=== PATIENT | female | born 1955 | race Caucasian/White ===

== ENCOUNTER 2019-01-05 08:37 | Day surgery (SDC) | payer BC ==
[~2019-01-05 08:37] MED LIST: Buffered Lidocaine 1% SYRIN* 1 ML/SYRINGE INTRADERM ONE; Lactated Ringers 1000 ML Bag* 1,000 ML IV SCH
[2019-01-05] MEDS ORDERED: fentaNYL* 50 MCG/ML 2 ML VIAL (100 MCG VIAL) ONE (08:40)
[2019-01-05] MEDS ORDERED: Rocuronium* 10 MG/ML VIAL ONE (08:40)
[2019-01-05] MEDS ORDERED: Propofol* 10 MG/ML 20 ML BTL ONE (08:40)
[2019-01-05] MEDS ORDERED: Midazolam* 1 MG/ML 2 ML VIAL (2 MG) ONE (08:40)
[2019-01-05] MEDS ORDERED: Lidocaine 2% PF * 5 ML VIAL ONE (08:40)
[2019-01-05] MEDS ORDERED: ceFAZolin 2 GM in NS PREMIX(*) 2 GM/100 ML BAG IVPB ONE (09:05)
[2019-01-05] MEDS ORDERED: Buffered Lidocaine 1% SYRIN* 1 ML/SYRINGE INTRADERM ONE (09:05)
[2019-01-05] MEDS ORDERED: ROPIVACAINE 5 MG/ML 30 ML BTL (0.5%) ONE (10:59)
[2019-01-05] MEDS ORDERED: Bupivacaine 0.25% W/EPI* 10 ML SDV ONE (11:10)
[2019-01-05] MEDS ORDERED: EPINEPHRINE 1 MG/ML 1 ML VIAL ONE (11:10)
[2019-01-05] MEDS ORDERED: Succinylcholine* 20 MG/ML 10 ML VIAL ONE ×2 (11:28→12:47)
[2019-01-05] MEDS ORDERED: EPHEDrine (Pressors)* 50 MG/ML VIAL ONE ×2 (11:44→12:18)
[2019-01-05] MEDS ORDERED: Dexamethasone IV* 4 MG/ML 1 ML (4 MG) ONE (11:44)
[2019-01-05] MEDS ORDERED: HYDROmorphone INJ1* 1 MG/ML SYRINGE IV PRN (12:19)
[2019-01-05] MEDS ORDERED: HYDROcodone/ACETAMIN 5-325 MG* 1 TAB PO PRN (12:19)
[2019-01-05] MEDS ORDERED: Naloxone* 0.4 MG/ML 1 ML VIAL IV PRN (12:19)
[2019-01-05] MEDS ORDERED: DiMENhydriNATE IV* 50 MG/ML VIAL IV PUSH PRN (12:19)
[2019-01-05] MEDS ORDERED: Ketorolac INJ* 30 MG/ML 1 ML VIAL ONE (12:29)
[2019-01-05] MEDS ORDERED: Ondansetron INJ* 2 MG/ML VIAL ONE (12:29)
[2019-01-05] MEDS ORDERED: Acetaminophen IV 1GM/100ML * 100 ML ONE (12:29)
[2019-01-05] MEDS ORDERED: Metoclopramide IV* 5 MG/ML 2 ML VIAL ONE (12:29)
[2019-01-05] MEDS ORDERED: Glycopyrrolate IV* 0.2 MG/ML 1 ML VIAL ONE (12:32)
[2019-01-05] MEDS ORDERED: Neostigmine Methylsulfate* 1 MG/ML 10 ML VIAL (1 mg/ml) ONE (12:32)
--- NOTE | 2019-01-05 14:11 | OP ---
DATE OF SURGERY: 01/05/19 - [facility] DATE OF : 57 ATTENDING SURGEON: Gabe Silverman MD MAINTENANCE SUPERVISOR 2ND SHIFT: Nory Glover RPA ANESTHESIA: Regional and general. PRE-OP DIAGNOSIS: Impingement syndrome, left shoulder. POST-OP DIAGNOSES: 1. Impingement syndrome, left shoulder. 2. Left biceps tendon tear. 3. Superior labral tear from anterior to posterior lesion, left shoulder. OPERATIVE PROCEDURE: 1. Left shoulder arthroscopy. 2. Biceps tenotomy. 3. Subacromial decompression. ESTIMATED BLOOD LOSS: Negligible. COMPLICATIONS: None. SUMMARY: Mrs. Gallo is a 63-year-old female who has been having troubles with both of her shoulders. She had been treated conservatively with physical therapy, antiinflammatories, and has had continued troubles with trying to reach up and over her head. This has slowly gotten worse, where she has lost motion as well as strength. I discussed with her the shoulder arthroscopy should work well to decrease her pain and improve her function. Risks of surgery such as infection, scar formation, stiffness, and continued pain were some of the risks discussed. She had been declared medically optimized and wished to proceed. DESCRIPTION OF PROCEDURE: The patient had a scalene block placed in the holding area, was brought back to the OR. General endotracheal anesthesia was then established. She was then sat up in a beach-chair position. Care was taken to make sure that her right arm was nicely abducted on an airplane board and that the cubital tunnel was nice and free. Left shoulder area was prepped and then draped. Portal sites were preinjected using 0.25% Marcaine with epinephrine. A standard posterior portal was made first using an 11 blade. Blunt trocar and the sheath was easily introduced into the shoulder and a cannula was introduced into the sheath. Shoulder was allowed to insufflate and pulling back, glenohumeral joint was nicely visualized. Damage on the biceps was immediately evident. Pictures were taken. Under direct vision, using an outside-in technique, anterior portal was established and probe was introduced. She only still had the small band of biceps connecting to the labrum, and it could be seen where greater than 80% of her biceps was already disconnected. Shaver was used to gently debride the biceps and complete the tear. Considering the subcutaneous tissues of her arm, the biceps deformity would not be visible so a tenodesis was not performed. Some of the damage along the superior labrum was gently debrided as at about 10:30 position, there was approximately 2 to 3 mm which was detached. This was gently debrided using the shaver. Probe was reintroduced and could be seen how from the 10:[address] around the labrum was solidly attached. Coming over the top side of the humeral head, she had quite thick synovial layer and this was again gently debrided using the shaver and no tears of the rotator cuff were seen. Picture was taken and shoulder joint was exited and subacromial joint was entered. Thickened inflamed bursa was present. Shaver was also entered into the subacromial space and used to take down the bursa and periosteum on the underside of the acromion. Bur was then used to form a decompression. Final pictures were taken and saved. All instrumentation was then removed and the portal sites were closed using 4-0 nylon sutures. Sterile dressing and a Cryo/ Cuff and a sling were all applied in the OR. The patient was then extubated in the OR and was stable on transfer to the recovery room. DISPOSITION/DISCHARGE SUMMARY: Mrs. Gallo is a 63-year-old female who just underwent a left shoulder arthroscopy and subacromial decompression. She tolerated the procedure well. There were no complications. She was rolling towards the recovery room. Once she wakes a bit more from her general anesthesia, cans tolerate p.o., her pain well controlled and voids, she will be discharged. Prescription for [place] will be e-scribed in. She has instructions to keep her dressing clean, dry, and intact for the next three days, but after that may take the dressing down, cover sutures with bandage, may shower, wash, or get it wet, but should not soak it. I would like to see her in the office in approximately 10 days to remove her sutures and make sure she is doing well. If there are any problems or if anything odd should occur there are instructions to give the office a call. [id number]/CPS #: [id number] MELANIE
[2019-01-05 14:22] VITALS: BP 113/55
== END 2019-01-05 14:29 | disposition home or self-care (01) ==
LOC: OR 08:37
PROVIDERS: ATTEND Orthopaedic Surgery
DX: M75.42 Impingement syndrome of left shoulder (principal); M24.212 Disorder of ligament, left shoulder; M17.32 Unilateral post-traumatic osteoarthritis, left knee; I10 Essential (primary) hypertension; E03.9 Hypothyroidism, unspecified; K21.9 Gastro-esophageal reflux disease without esophagitis; F32.9 Major depressive disorder, single episode, unspecified; E11.9 Type 2 diabetes mellitus without complications; Z79.84 Long term (current) use of oral hypoglycemic drugs; G89.18 Other acute postprocedural pain
CPT/HCPCS: J0330; J0690; J1100; J1885; J2250; J2405; J2704; J2710; J2765; J2795; J3010

== ENCOUNTER 2019-05-04 08:24 | Inpatient (IN) | payer BC ==
[~2019-05-04 08:24] MED LIST changes: +Acetaminophen TAB* 325 MG PO ONE; -Buffered Lidocaine 1% SYRIN* 1 ML/SYRINGE INTRADERM ONE; +Gabapentin CAP(*) 300 MG PO ONE; +Tranexamic Acid 1,000 MG in NS 0.9% 50 ML* (outpatient use) IV SCH
--- OUTSIDE RECORDS SUMMARY | 2019-05-04 08:27 | XMS REPORT | Continuity of Care Document ---
:1955 External Reference #:[id number] Author Name Kamala Dawson Address [address] [place] [address] Problems Active Problems Provider Date Essential hypertension Kamala Dawson Onset: 12/18/2016 Acute sinusitis Cosme Francois RPA Onset: 04/17/2017 Acute pharyngitis Cosme Francois RPA Onset: 04/17/2017 Social History Type Date Description Comments Sex Unknown ETOH Use Occasionally consumes alcohol Tobacco Use Start: Unknown Patient has never smoked Recreational Drug Use Denies Drug Use Smoking Status Reviewed: 04/28/19 Patient has never smoked Tattoo/Piercing Pierced ears Allergies, Adverse Reactions, Alerts Active Allergies Reaction Severity Comments Date Sulfa 12/18/2016 Aspirin Sensitivity 12/18/2016 Codene 12/18/2016 Epinephrine 04/17/2017 Medications Active Medications SIG Qnty Indications Ordering Date Provider Potassium Chloride ER 1 by mouth 90tabs Eunice, 01/05/2019 20Meq every day Kamala Tablets ER Lipitor 1 by mouth 90tabs Eunice, 10/10/2018 10mg Tablets every day Kamala Synthroid 1 by mouth 90tabs Eunice, 10/10/2018 137mcg Tablets every day Kamala Metformin HCL Take 1 Tablet 180tabs Eunice, 10/09/2018 500mg Tablets By Mouth Twice Kamala Daily Zolpidem Tartrate ER Take 1 Tablet 30tabs G47.00 Eunice, 07/02/2018 12.5mg By Mouth Kamala Tablets ER Nightly Max Daily Dose Of 1 Tablet Freestyle Chantell 14 use daily to 1units E11.65 Eunice, 07/02/2018 Day/Jordan/Flash monitor bs Kamala Monitoring System Device Freestyle 30 day supply 2units E11.65 Eunice, 07/02/2018 Chantell/Sensor/Flash of sensors Kamala [place] [facility] [place] H[place] Take 1 Capsule 90caps Corey, 05/07/[address] Part By Mouth Once Chica, INSOLE DEPARTMENT WORKER Daily Freestyle Lite Test test once a 100units E11.65 Eunice, 12/28/2016 Strips day, as needed Kamala Freestyle Lancets test once a 100units E11.65 Eunice, 12/28/2016 Misc day, as needed Kamala Compression Stockings Use Daily Eunice, 12/18/2016 20-30 mm HG Kamala Hydrochlorothiazide Take 1 Tablet 90tabs Corey, 50mg Tablets By Mouth Once Chica, INSOLE DEPARTMENT WORKER Daily Allopurinol Take 1 Tablet 90tabs Zabrina, 300mg Tablets By Mouth Once Treasure, STAFF FORESTER Daily Aspirin Childrens 1 by mouth Unknown 81mg Chewtabs every day Omeprazole Take 1 Capsule 90caps Eunice, 40mg Capsules DR By Mouth Once Kamala Daily Amlodipine Besylate Take 1 Tablet 90tabs Corey, 5mg Tablets By Mouth Once Chica, INSOLE DEPARTMENT WORKER Daily Lisinopril Take 1 Tablet 90tabs Corey, 40mg Tablets By Mouth Once Chica, INSOLE DEPARTMENT WORKER Daily Gabapentin 1 by mouth at Unknown 300mg Capsules bedtime History Medications Cephalexin one by mouth 30tabs N63.20 Treasure Gerber, 01/30/2019 - 500mg three times STAFF FORESTER 02/11/2019 Tablets daily Fluconazole take one at 3tabs N63.20 Treasure Gerber, 01/30/2019 - 150mg onset and STAFF FORESTER 04/28/2019 Tablets repeat in 3 days Immunizations CPT Code Status Date Vaccine Lot # 82069 Refused 04/22/2017 Influenza Vacc Seqirus/Afluria Alex, [facility] 54479-755- [id number], .5 ML Vital Signs Date Vital Result Comment 04/28/2019 11:23am Height 63 inches 5'3" Weight 246.00 lb BP Systolic 126 mmHg BP Diastolic 74 mmHg Heart Rate 64 /min Respiratory Rate 16 /min Pain Level Average Daily 0 BMI (Body Mass Index) 43.6 kg/m2 02/11/2019 2:51pm Height 63 inches 5'3" Weight 241.00 lb BP Systolic 130 mmHg BP Diastolic 74 mmHg Heart Rate 68 /min Respiratory Rate 16 /min Pain Level Average Daily 4 BMI (Body Mass Index) 42.7 kg/m2 Results Test Acquired Date Facility Test Result H/L Range Note Type and Screen 04/24/2019 N2N/CCD Import Patient Blood A Positive Type Basic Metabolic 04/24/2019 N2N/CCD Import Sodium 142 mmol/L 135-145 Panel Potassium 3.4 mmol/L Low 3.5-5.0 Chloride 100 mmol/L Low 101-111 Co2 Carbon Dioxide 32 mmol/L 22-32 Anion Gap 10 mmol/L 2-11 Glucose 95 mg/dL 70-100 Blood Urea Nitrogen 14 mg/dL 6-24 Creatinine 0.81 mg/dL 0.51-0.95 BUN/Creatinine Ratio 17.3 8-20 Calcium 9.5 mg/dL 8.6-10.3 Egfr Non- 71.6 >60 Egfr 86.7 >60 1 Inr 04/24/2019 N2N/CCD Import Inr 1.02 0.82-1.09 2 Activated Partial 04/24/2019 N2N/CCD Import Activated 31.2 seconds 26.0- 38.0 Thrombo Time Partial Thrombo Time CBC Auto Diff 04/24/2019 N2N/CCD Import White Blood 9.8 10^3/uL 3.5- 10.8 Count Red Blood Count 4.88 10^6/uL High 3.70-4.87 Hemoglobin 12.9 g/dL 12.0-16.0 Hematocrit 39 % 35-47 Mean Corpuscular Volume 80 fL 80-97 Mean Corpuscular Hemoglobin 26 pg Low 27-31 Mean Corpuscular HGB Conc 33 g/dL 31-36 Red Cell Distribution Width 17 % High 10-15 Platelet Count 219 10^3/uL 150-450 Mean Platelet Volume 8.2 fL 7.4-10.4 Abs Neutrophils 5.6 10^3/uL 1.5-7.7 Abs Lymphocytes 3.2 10^3/uL 1.0-4.8 Abs Monocytes 0.5 10^3/uL 0-0.8 Abs Eosinophils 0.3 10^3/uL 0-0.6 Abs Basophils 0.1 10^3/uL 0-0.2 Abs Nucleated RBC 0.0 10^3/uL Granulocyte % 57.6 % Lymphocyte % 33.1 % Monocyte % 5.4 % Eosinophil % 3.0 % Basophil % 0.9 % Nucleated Red Blood Cells % 0.0 Urinalysis w/Refl Micro/Cult 04/24/2019 N2N/CCD Import Urine Color Yellow Urine Appearance Clear Urine Specific [place] 1.018 1.010-1.030 Urine pH 8.0 5-9 Urine Urobilinogen Negative Negative Urine Ketones Negative Negative Urine Protein Negative Negative Urine Leukocytes Trace Abnormal Negative Urine Blood Negative Negative * * Abnormal Negative 3 Urine Nitrite Negative Negative Urine Bilirubin Negative Negative Urine Glucose Negative Negative Urine White Blood Cell Trace(0-5/hpf) Absent Urine Red Blood Cell Trace(0-2/hpf) Absent Urine Bacteria Absent Absent Urine Squamous Epithelial Cell Present Abnormal Absent CBC With Diff 01/30/2019 [facility] WBC 9.0 K/UL Normal 4.0-10.5 RBC 4.83 M/UL Normal 4.00-5.20 Hemoglobin 12.3 GM/DL Normal 12.2-15.5 Hematocrit 39.3 % Normal 37.0-47.0 MCV 81.4 FL Normal 77.0-100.0 MCH 25.5 pg Low 26.0-32.0 MCHC 31.3 g/dL Low 32.0-36.0 RDW 16.7 % High 11.5-14.0 Platelet Count 214 K/UL Normal 125-425 MPV 10.6 FL High 7.4-10.4 Absolute Neut 5.4 K/UL Normal 1.4-8.4 Absolute Lymph 2.7 K/UL Normal 1.0-4.0 Absolute [place] 0.6 K/UL Normal 0.0-1.5 Absolute Eos 0.3 K/UL Normal 0.0-0.7 Absolute Baso 0.1 K/UL Normal 0.0-0.1 Neut% 60 % Normal 35-78 Lymph% 31 % Normal 20-42 [place]% 6 % Normal 0-15 Eos% 2.9 % Normal 0.0-10.0 Baso% 1 % Normal 0-2 CBC With Diff 01/02/2019 [facility] WBC 11.3 K/UL High 4.0-10.5 RBC 4.88 M/UL Normal 4.00-5.20 Hemoglobin 12.5 GM/DL Normal 12.2-15.5 Hematocrit 39.4 % Normal 37.0-47.0 MCV 80.7 FL Normal 77.0-100.0 MCH 25.6 pg Low 26.0-32.0 MCHC 31.7 g/dL Low 32.0-36.0 RDW 16.1 % High 11.5-14.0 Platelet Count 212 K/UL Normal 125-425 MPV 10.7 FL High 7.4-10.4 Absolute Neut 7.5 K/UL Normal 1.4-8.4 Absolute Lymph 2.9 K/UL Normal 1.0-4.0 Absolute [place] 0.6 K/UL Normal 0.0-1.5 Absolute Eos 0.3 K/UL Normal 0.0-0.7 Absolute Baso 0.1 K/UL Normal 0.0-0.1 Neut% 66 % Normal 35-78 Lymph% 26 % Normal 20-42 [place]% 5 % Normal 0-15 Eos% 2.6 % Normal 0.0-10.0 Baso% 0 % Normal 0-2 Comprehensive Metabolic Panel 01/02/2019 [facility] Sodium 140 mmol/L Normal 137-145 Potassium 3.0 mmol/L Low 3.5-5.3 Chloride 99 mmol/L Normal 98-107 Carbon Dioxide 32 mmol/L Normal 21-32 Anion Gap 9 Normal 9-17 Glucose 123 mg/dL High 75-110 4 BUN 18 mg/dL Normal 7-20 Creatinine 0.8 mg/dL Normal 0.8-1.5 BUN/Creat Ratio 23 Calcium 9.4 mg/dL Normal 8.4-10.2 Total Protein 7.4 g/dL Normal 6.1-8.1 Albumin 4.1 g/dL Normal 3.5-5.1 Alb/Glob Ratio 1.3 Normal 1.1-1.8 Bilirubin, Total 0.7 mg/dL Normal 0.1-1.5 Alk Phosphatase 89 IU/L Normal 39-122 Ast (Sgot) 41 IU/L High 5-40 Alt (SGPT) 31 IU/L Normal 7-51 Hemoglobin A1c 01/02/2019 [facility] Hemoglobin A1c 5.7 % High 4.0-5.6 5 Lipid Panel ([facility]) 01/02/2019 [facility] Cholesterol 129 mg/dL Normal 100- 200 6 Triglycerides 161 mg/dL High 40-150 HDL 39 mg/dL Normal 30-80 LDL 57.80 mg/dL Normal 7 Risk 3.31 8 Urine Microalbumin 01/02/2019 [facility] Microalbumin 12.80 Normal 0.00- 30.00 Random Random g/mL Urine Creatinine 210.0 mg/dL Albumin / Creat Ratio 6.10 MG/G Normal <17.0 TSH 01/02/2019 [facility] TSH (Ultrasens.) 4.140 Normal 0.380-4.710 MIU/L T4 Total 01/02/2019 [facility] Total T4 12.0 High 4.7-11.5 g/dL Non-HDL 01/02/2019 [facility] Non-HDL 90 mg/dL Normal 60-100 9 Cholesterol Cholesterol Estimated 01/02/2019 [facility] Egfr - Non- >60 Normal 10 Glomerular sq.meters Filtration Rate Egfr - >60 sq.meters Normal 11 Estimated Avg 01/02/2019 [facility] Estimated Avg 117 mg/dL High 68-115 12 Glucose Glucose Free T4 01/02/2019 [facility] Free T4 1.2 ng/dL Normal 0.7-2.0 TSH 11/20/2018 [facility] TSH (Ultrasens.) 1.340 MIU/L Normal 0.380-4.710 T4 Total 11/20/2018 [facility] Total T4 12.2 g/dL High 4.7-11.5 1 Because ethnic data is not always readily available, this report includes an eGFR for both -Americans and non- Americans. The National Kidney Disease Education Program (NKDEP) does not endorse the use of the MDRD equation for patients that are not between the ages of 18 and 70, are , have extremes of body size, muscle mass, or nutritional status, or are non- or non-. According to the National Kidney Foundation, irrespective of diagnosis, the stage of the disease is based on the level of kidney function: Stage Description GFR(mL/min/1.73 m(2)) 1 Kidney damage with normal or decreased GFR 90 2 Kidney damage with mild decrease in GFR 60-89 3 Moderate decrease in GFR 30-59 4 Severe decrease in GFR 15-29 5 Kidney failure <15 (or dialysis) 2 Standard intensity warfarin therapeutic range: 2.0-3.0 High intensity warfarin therapeutic range: 2.5-3.5 3 *Ascorbic acid is present which may interfere with detection of blood. 4 Reference Ranges: Normal Fasting Glucose ........65-99 MG/DL Pre-Diabetes ......100-125 MG/DL Provisional Diagnosis of Diabetes .........>125 MG/DL 5 Reference Range: Increased Risk for Diabetes... 5.7 - 6.4% Diagnostic for Diabetes... 6.5% or above 6 Cholesterol Ranges: Desirable <200 MG/DL Borderline High 200-239 MG/DL High >239 MG/DL ............................... 7 <100 8 CHD RISK FACTOR VS CHOLESTEROL/HDL RATIO RELATIVE TOTAL CHOL/HDL RATIO RISK FOR CHD MALE FEMALE [address] CHD 3.4 3.3 AVERAGE 4.9 4.4 2 X AVERAGE 9.6 7.0 3 X AVERAGE 24.0 11.0 9 LDL Non-HDLC High Risk <100 <130 (Optional for Very High Risk) (<70) (<100) Moderate Risk <130 <160 (Optional for Moderately High Risk) (<100) (<130) Low Risk <160 <190 For assesment of risk for ischemic heart disease, please visit www.nhlbi.nih.gov 10 >60 mL/min/1.73 11 >60 mL/min/1.73 Potential Chronic Kidney Disease: <60ml/min/1.73sq meters Kidney Failure: <15ml/min/1.73sq meters 12 The reference range provided is the estimated average glucose equivalent to the Hemoglobin A1C reference range Procedures Date Code Description Status 01/02/2019 40278 Electrocardiogram, Complete Completed 06/10/2016 904554545 Bone Mineral Density Test Completed 06/10/2016 82271178 Mammogram Completed Medical Devices Description No Information Available Encounters Type Date Location Provider Dx Diagnosis Office Visit 02/11/2019 Main Office Joe-Scott, M75.42 Impingement syndrome 3:00p Kamala of left shoulder N63.20 Unspecified lump in the left breast, unspecified quadrant E11.65 Type 2 diabetes mellitus with hyperglycemia I10 Essential (primary) hypertension E03.9 Hypothyroidism, unspecified R74.0 Nonspec elev of levels of transamns & lactic acid dehydrgnse H69.83 Other specified disorders of Eustachian tube, bilateral Z68.41 Body mass index (BMI) 40.0-44.9, adult Office Visit 01/30/2019 11:15a Main Office Treasure Gerber, N63.20 Unspecified lump STAFF FORESTER in the left breast, unspecified quadrant Z68.41 Body mass index (BMI) 40.0-44.9, adult Office Visit 01/02/2019 Main Office Kamala Dawson M75.42 Impingement 8:00a syndrome of left shoulder E11.65 Type 2 diabetes mellitus with hyperglycemia I10 Essential (primary) hypertension E03.9 Hypothyroidism, unspecified Z01.818 Encounter for other preprocedural examination K59.00 Constipation, unspecified Z12.31 Encntr screen mammogram for malignant neoplasm of breast Z68.41 Body mass index (BMI) 40.0-44.9, adult Assessments Date Code Description Provider 04/28/2019 Z01.818 Encounter for other preprocedural examination Kamala Rosales 04/28/2019 M25.562 Pain in left knee Kamala Dawson 04/28/2019 E11.65 Type 2 diabetes mellitus with hyperglycemia Kamala Dawson 04/28/2019 Z68.41 Body mass index (BMI) 40.0-44.9, adult Kamala Dawson 02/11/2019 M75.42 Impingement syndrome of left shoulder Kamala Dawson 02/11/2019 N63.20 Unspecified lump in the left breast, Kamala Dawson unspecified quadrant 02/11/2019 E11.65 Type 2 diabetes mellitus with hyperglycemia Kamala Dawson 02/11/2019 I10 Essential (primary) hypertension Kamala Dawson 02/11/2019 E03.9 Hypothyroidism, unspecified Kamala Dawson 02/11/2019 R74.0 Nonspecific elevation of levels of Kamala Dawson transaminase and lactic acid dehydrogenase [LDH] 02/11/2019 H69.83 Other specified disorders of Eustachian tube, Kamala Rosales bilateral 02/11/2019 Z68.41 Body mass index (BMI) 40.0-44.9, adult Kamala Dawson 01/30/2019 N63.20 Unspecified lump in the left breast, Treasure Gerber, GISELA unspecified quadrant 01/30/2019 Z68.41 Body mass index (BMI) 40.0-44.9, adult Treasure Gerber NP 01/02/2019 M75.42 Impingement syndrome of left shoulder Kamala Dawson 01/02/2019 E11.65 Type 2 diabetes mellitus with hyperglycemia Kamala Dawson 01/02/2019 I10 Essential (primary) hypertension Kamala Dawson 01/02/2019 E03.9 Hypothyroidism, unspecified Kamala Dawson 01/02/2019 Z01.818 Encounter for other preprocedural examination Kamala Rosales 01/02/2019 K59.00 Constipation, unspecified Kamala Dawson 01/02/2019 Z12.31 Encounter for screening mammogram for Kamala Dawson malignant neoplasm of breast 01/02/2019 Z68.41 Body mass index (BMI) 40.0-44.9, adult Kamala Dawson 11/20/2018 E03.9 Hypothyroidism, unspecified Nurse Visit Plan of Treatment 04/28/2019 - Domingo DawsonenZ01.818 Encounter for other preprocedural examinationComments:PT CLEARED FOR PROPOSED PROCEDURE. TO HOLD ASPIRIN, FISH OIL FOR 5 DAYS PRIOR TO OR. NO CONTRAINDICATION TO THE SURGERY PT IS MEDICALLY CLEARED FOR SURGERY. EKG IN DECEMBER OK TO USE FOR SURGERY CLEARANCE PER DR. CORRALES OFFICE IN [place]. WILL HOLD HCTZ THE AM OF SURGERY PT HAD A RECENT FALL AND INJURED HER RIGHT KNEE. NO CONTRAINDICATION TO [id number] Pain in left kneeComments:PER FNXIEI43.65 Type 2 diabetes mellitus with hyperglycemiaComments:PT WILL HOLD DM MED THE MORNING OF THE SURGERY. PT WILL NEED FSBS MONITORING IN PERIOPERATIVE PIWVXET56.41 Body mass index (BMI) 40.0- 44.9, adult Functional Status Description No Information Available Mental Status Mental Condition Comment Date Status None Active Referrals Refer to Reason for Referral Status Appt Date Nathaniel Jackson MD LUMP IN BELLY THAT SHE WANTS Patient Notified REMOVED [address] [facility] [address] [place] [address] [phone] Dagoberto Posey LUMP ON NOSE WANTS IT REMOVED Patient Notified 2018 [address] [place] [address] [phone] [facility] abnormal ultrasound Patient Notified 02/05/2019 Main [facility] [address] [place] [address] [phone]
--- OUTSIDE RECORDS SUMMARY | 2019-05-04 08:27 | XMS REPORT | Continuity of Care Document ---
:1955 External Reference #:[id number] Author Name Gabe Silverman M.D. (transmitted by agent of provider China Palacios) Address [address] [place] [address] Care Team Providers Name Role Phone Heath-Kamala Chavez DO - Internal Care Team Information Tie Presser Medicine Problems Active Problems Provider Date Chondromalacia Gabe Silverman M.D. Onset: 02/09/2016 Traumatic arthropathy-knee Gabe Silverman M.D. Onset: 02/09/2016 Localized, secondary osteoarthritis Gabe Silverman M.D. Onset: 02/22/2016 Localized, primary osteoarthritis Gabe Silverman M.D. Onset: 10/30/2017 Social History Type Date Description Comments Sex Unknown Tobacco Use Start: Unknown Patient has never smoked Smoking Status Reviewed: 03/25/19 Patient has never smoked Allergies, Adverse Reactions, Alerts Active Allergies Reaction Severity Comments Date Aspirin 02/09/2016 Codeine 02/09/2016 Sulfa Antibiotics 02/09/2016 Novocain 02/09/2016 Medications Active Medications SIG Qnty Indications Ordering Date Provider Cyclobenzaprine HCL take 1 tablet 90tabs M62.412 Gabe Silverman, 2018 10mg Tablets up to three M.D. times a day as needed Gabapentin 1 by mouth 30caps M75.42 Gabe Silverman, 01/28/2019 300mg Capsules every night at M.D. bedtime Clavicle Strap/Figure-8 1units M75.42 Gabe Silverman, 11/19/2018 Medium M.D. Fig-8 MD Carrillo Diclofenac Sodium apply 4 gr to 300gm M17.32 Gabe Silverman, 10/22/2018 1% Gel right knee M.D. twice a day as needed Clobetasol 17 Propionate Unknown Aerosol Amlodipine Besylate 1 by mouth Unknown 5mg Tablets every day Duloxetine HCL 1 by mouth Unknown 30mg Caps DR Part every day Hydrochlorothiazide 1 by mouth Unknown 50mg Tablets every day Lisinopril 1 by mouth Unknown 40mg Tablets every day Metformin HCL ER (Mod) 2 by mouth Unknown 500mg twice a day Tablets ER 24HR Omeprazole 1 by mouth Unknown 40mg Capsules DR every day Synthroid 1 by mouth Unknown 137mcg Tablets every day Atorvastatin Calcium Unknown 10mg Tablets Medications Administered in Office Medication SIG Qnty Indications Ordering Provider Date Synvisc Or Synvisc-One Injection Gabe Silverman M.D. 09/17/2018 1 MG Injection Synvisc Or Synvisc-One Injection Gabe Silverman M.D. 09/17/2018 1 MG Injection Synvisc Or Synvisc-One Injection Gabe Silverman M.D. 11/13/2017 1 MG Injection Synvisc Or Synvisc-One Injection Gabe Silverman M.D. 10/30/2017 1 MG Injection Synvisc Or Synvisc-One Injection Gabe Silverman M.D. 04/24/2017 1 MG Injection Synvisc Or Synvisc-One Injection Gabe Silverman M.D. 02/22/2016 1 MG Injection Depomedrol 80MG Gabe Silverman M.D. 04/05/2010 Injection Immunizations Description No Information Available Vital Signs Date Vital Result Comment 03/25/2019 1:52pm Height 63 inches 5'3" Weight 241.00 lb Heart Rate 56 /min BP Systolic 132 mmHg BP Diastolic 84 mmHg Respiratory Rate 18 /min Body Temperature 97.5 F Pain Level 0 BMI (Body Mass Index) 42.7 kg/m2 02/25/2019 3:10pm Height 63 inches 5'3" Weight 244.00 lb Heart Rate 66 /min BP Systolic 120 mmHg BP Diastolic 78 mmHg Body Temperature 97.7 F Pain Level 0 BMI (Body Mass Index) 43.2 kg/m2 Results Test Date Facility Test Result H/L Range Note Laboratory test 01/05/2019 [facility] Point of Care 149 mg/dL High 70-100 [address] [place] [address] [phone] Laboratory test 01/05/2019 [facility] Point of Care 110 mg/dL High 70-100 [address] [place] [address] [phone] Motor Adjuster: [id number] 2 Motor Adjuster: [id number] Procedures Date Code Description Status 01/05/2019 40854 Arthroscopy,Shoulder Decompression Of Subacromial Space Completed W/Acromio 01/05/2019 29100 Arthroscopy,Shoulder Decompression Of Subacromial Space Completed W/Acromio 01/05/2019 48609 Arthroscopy Shoulder Debridement Limited Completed 01/05/2019 66894 Arthroscopy Shoulder Debridement Limited Completed Medical Devices Description No Information Available Encounters Type Date Location Provider Dx Diagnosis Office Visit 01/28/2019 [facility] Gabe Silverman, D17.22 Benign lipomatous 2:15p at [facility] neoplasm of skin, subcu of left arm M75.41 Impingement syndrome of right shoulder M17.32 Unilateral post-traumatic osteoarthritis, left knee Office Visit 11/19/2018 [facility] Gabe M17.32 Unilateral 3:00p Orthopedics at [facility] post-traumatic [place] osteoarthritis, left knee M75.42 Impingement syndrome of left shoulder M75.41 Impingement syndrome of right shoulder Office Visit 10/22/2018 [facility] Gabe M17.32 Unilateral 3:30p Orthopedics at [facility] post-traumatic [place] osteoarthritis, left knee M75.42 Impingement syndrome of left shoulder Assessments Date Code Description Provider 03/25/2019 M17.11 Unilateral primary osteoarthritis, right Gabe Silverman M.D. knee 02/25/2019 M17.32 Unilateral post-traumatic osteoarthritis, Gabe Silverman M.D. left knee 02/25/2019 M62.412 Contracture of muscle, left shoulder Gabe Silverman M.D. 01/28/2019 D17.22 Benign lipomatous neoplasm of skin and Gabe Silverman M.D. subcutaneous tissue of left arm 01/28/2019 M75.41 Impingement syndrome of right shoulder Gabe Silverman M.D. 01/28/2019 M17.32 Unilateral post-traumatic osteoarthritis, Gabe Silverman M.D. left knee 01/14/2019 Z47.89 Encounter for other orthopedic aftercare Gabe Silverman M.D. 01/14/2019 M75.41 Impingement syndrome of right shoulder Gabe Silverman M.D. 01/05/2019 M75.42 Impingement syndrome of left shoulder [facility] [place] 01/05/2019 S43.432A Superior glenoid labrum lesion of left [facility]RI [place] shoulder, initial encounter 01/05/2019 M75.42 Impingement syndrome of left shoulder Gabe Silverman M.D. 01/05/2019 S43.432A Superior glenoid labrum lesion of left Gabe Silverman M.D. shoulder, initial encounter 12/22/2018 M75.42 Impingement syndrome of left shoulder Gabe Silverman M.D. 12/19/2018 M75.42 Impingement syndrome of left shoulder Gabe Silverman M.D. 11/19/2018 M17.32 Unilateral post-traumatic osteoarthritis, Gabe Silverman M.D. left knee 11/19/2018 M75.42 Impingement syndrome of left shoulder Gabe Silverman M.D. 11/19/2018 M75.41 Impingement syndrome of right shoulder Gabe Silverman M.D. 10/22/2018 M17.32 Unilateral post-traumatic osteoarthritis, Gabe Silverman M.D. left knee 10/22/2018 M75.42 Impingement syndrome of left shoulder Gabe Silverman M.D. Plan of Treatment Future Appointment(s):05/04/2019 9:00 am - Gabe Silverman M.D. at [facility]03/25/2019 - Gabe Silverman M.D.M17.11 Unilateral primary osteoarthritis, right kneeFollow up:Call if PT script needed for the shoulder Functional Status Description No Information Available Mental Status Description No Information Available Referrals Description No Information Available
[2019-05-04] MEDS ORDERED: Gabapentin CAP(*) 300 MG ONE (09:27)
[2019-05-04] MEDS ORDERED: Acetaminophen TAB* 325 MG ONE (09:27)
[2019-05-04] MEDS ORDERED: Buffered Lidocaine 1% SYRIN* 1 ML/SYRINGE INTRADERM ONE (09:27)
[2019-05-04] MEDS ORDERED: ceFAZolin 2 GM in NS PREMIX(*) 2 GM/100 ML BAG IVPB ONE (09:27)
[2019-05-04] MEDS: Buffered Lidocaine 1% SYRIN* 1 ML/SYRINGE INTRADERM ONE ×2 (09:36→15:21)
[2019-05-04] MEDS ORDERED: Midazolam* 1 MG/ML 2 ML VIAL (2 MG) ONE ×2 (10:21→11:35)
[2019-05-04] MEDS ORDERED: fentaNYL* 50 MCG/ML 2 ML VIAL (100 MCG VIAL) ONE ×2 (10:21→11:24)
[2019-05-04] MEDS ORDERED: ROPIVACAINE 5 MG/ML 30 ML BTL (0.5%) ONE (11:03)
[2019-05-04] MEDS ORDERED: Propofol* 500 MG/50 ML BTL ONE ×2 (11:50→12:42)
[2019-05-04] MEDS ORDERED: Bupivacaine 0.25% EPI 200,000* 30 ML SDV ONE (12:08)
[2019-05-04] MEDS ORDERED: Bupivacaine 0.5% W/EPI SDV* 10 ML VIAL INJ ONE (12:10)
[2019-05-04] MEDS ORDERED: EPHEDrine (Pressors)* 50 MG/ML VIAL ONE (12:29)
[2019-05-04] MEDS ORDERED: Phenylephrine 40 MCG/ML SYRINGE ONE (12:30)
[2019-05-04] MEDS ORDERED: Propofol* 10 MG/ML 20 ML BTL ONE (13:58)
[2019-05-04] MEDS ORDERED: diPHENhydraMINE PO* 25 MG PO PRN (14:18)
[2019-05-04] MEDS ORDERED: Ondansetron ODT TAB* 4 MG PO PRN (14:18)
[2019-05-04] MEDS ORDERED: diPHENhydraMINE IV* 50 MG/ML 1 ml VIAL (BENADRYL) IV PRN (14:18)
[2019-05-04] MEDS ORDERED: Magnesium Hydroxide LIQ* 30 ML UDC PO PRN (14:18)
[2019-05-04] MEDS ORDERED: Cyclobenzaprine TAB* 10 MG PO PRN (14:18)
[2019-05-04] MEDS ORDERED: oxyCODONE TAB* 5 MG TAB PO PRN (14:18)
[2019-05-04] MEDS ORDERED: Ondansetron INJ* 2 MG/ML VIAL IV PRN (14:18)
[2019-05-04] MEDS ORDERED: Dextrose 50% VIAL 50 ml IV PUSH PRN (14:24)
[2019-05-04] MEDS ORDERED: HYDROcodone/ACETAMIN 5-325 MG* 1 TAB ONE ×2 (14:53→14:58)
[2019-05-04] MEDS ORDERED: HYDROcodone/ACETAMIN 5-325 MG* 1 TAB PO ONE (14:54)
[2019-05-04] MEDS: Lactated Ringers 1000 ML Bag* 1,000 ML IV SCH (15:45)
[2019-05-04] MEDS ORDERED: HYDROcodone/ACETAMIN 5-325 MG* 1 TAB PO PRN (16:16)
[2019-05-04] MEDS ORDERED: Insulin LISPRO* 1 UNITS UNIT SUBCUT SCH (16:30)
[2019-05-04] MEDS ORDERED: Ketorolac INJ* 30 MG/ML 1 ML VIAL IV PUSH PRN (16:38)
--- NOTE | 2019-05-04 16:40 | PN ---
Progress Note - Progress Note Date of Service: 05/04/19 Note: Pt seen at bedside. She has 8/10 pain. Asks for norco instead of oxycodone. Denies CP, SOB,dizziness, nausea. DF/PF intact, DP2+, sensation intact to light touch distally.
[2019-05-04] MEDS ORDERED: Warfarin TAB(*) 10 MG PO ONE (17:00)
[2019-05-04] MEDS: Lactobacillus Acidophilus* 1 TAB PO SCH (17:31)
[2019-05-04] MEDS: Morphine INJ* 2 MG/ML 1 ML SYRINGE (TWO MG - NEW SYRINGE VERSION) IV PRN (17:31)
[2019-05-04] MEDS: traMADol TAB* 50 MG PO SCH (17:32)
[2019-05-04] MEDS: Potassium Chlor TAB* 20 MEQ TAB.ER PO SCH (17:33)
--- NOTE | 2019-05-04 17:46 | CONS ---
CC: Dr. Kamala Gamino, [facility], [place]; Dr. Silverman * CONSULTATION REPORT: DATE OF CONSULT: 05/04/19 PRIMARY CARE PROVIDER: Dr. Kamala Dawson, [facility] in [place]. ATTENDING PHYSICIAN: Dr. Donna López (dictated by CARRI Grant). REQUESTING PHYSICIAN: Dr. Silverman. REASON FOR CONSULT: Co-medical management. HISTORY OF PRESENT ILLNESS: Ms. Gallo is a 63-year-old female with past medical history of diabetes mellitus, hypertension, hyperlipidemia, gout, obstructive sleep apnea, who presented to [facility] today for an elective left total knee arthroplasty performed by Dr. Silverman. She is seen postoperatively in her bed on surgical short-stay. She is complaining of left knee pain rated at 8/ 10. She also has left shoulder pain and decreased range of motion. She is status post left shoulder surgery in December 2018. She reports no pain elsewhere. She does complain of chronic left pinky and left lateral fourth digit numbness since her left cubital tunnel surgery. She has no other complaints today. PAST MEDICAL HISTORY: 1. Diabetes mellitus. 2. Hypertension. 3. Hyperlipidemia. 4. Hypothyroidism. 5. GERD. 6. Obstructive sleep apnea. 7. Gout. 8. Depression. 9. Insomnia. PAST SURGICAL HISTORY: Hysterectomy, left cubital tunnel, left knee scope, left shoulder, cholecystectomy, appendectomy, bladder/vaginal mesh, tummy tuck, abdominal adhesions, faciomaxillary surgery. HOME MEDICATIONS: 1. Allopurinol 300 mg p.o. daily. 2. Amlodipine besylate 5 mg p.o. daily. 3. Aspirin 81 mg p.o. daily. 4. Atorvastatin 10 mg p.o. daily. 5. Cyclobenzaprine 10 mg p.o. daily. 6. Diclofenac 1% gel topically. 7. Duloxetine DR 60 mg p.o. daily. 8. Fluticasone nasal spray 2 sprays to both nares at bedtime. 9. Gabapentin 300 mg p.o. at bedtime. 10. Hydrochlorothiazide 50 mg p.o. daily. 11. Levothyroxine 137 mcg p.o. daily. 12. Lisinopril 40 mg p.o. daily. 13. Melatonin 2.5 mg p.o. daily. 14. Metformin 500 mg p.o. b.i.d. 15. Omeprazole 40 mg p.o. at bedtime. 16. Potassium chloride 20 mEq p.o. at bedtime. 17. Metamucil 1 wafer daily. 18. Probiotic 250 mg p.o. at bedtime. 19. Total Cleanse capsule 1 cap p.o. daily. 20. Zolpidem tartrate 12.5 mg p.o. at bedtime p.r.n. insomnia. DRUG ALLERGIES: CODEINE, abdominal pain; EGG, abdominal pain, diarrhea; ASPIRIN , thin membrane bleeding; PROCAINE, panic attacks; SULFA, vomiting. FAMILY HISTORY: Father at the age of 80, suspected to be from aneurysm. He had a history of diabetes mellitus, prostate cancer, coronary artery disease with quadruple bypass. Mother at the age of 83 from complications from Alzheimer's. She also had coronary artery disease with stenting. She has 2 brothers with prostate cancer and a brother with PAD and aneurysm. No family history of CVA. SOCIAL HISTORY: The patient denies current or former use of tobacco. She drinks 1 to 2 alcoholic beverages per week. She does not use illicit drugs. She is a homemaker. She is and lives with her and her autistic son. In the event that she is unable to make her own medical decisions, she has appointed her and healthcare proxy Feliz Gallo to be her surrogate decision maker. REVIEW OF SYSTEMS: A 14-point review of systems has been performed and all the pertinent positives and negatives are in the HPI. All other systems are negative. PHYSICAL EXAM: General: Ms. Gallo is a well-developed, well-nourished, obese , middle-aged white female, who is sitting up in bed. She appears to be in no acute distress. She is pleasant, cooperative, appropriate. Vital Signs: Temperature 97.6 oral, heart rate 56, respiratory rate 16, oxygen saturation 95 % on room air, blood pressure 120/54. HEENT: PERRL. EOMI. Nonicteric sclerae. Hearing is grossly intact. Oral mucous membranes are moist. There are no lesions. The pharynx is clear. The tongue is at midline. Palate elevates symmetrically. Cardiovascular: Regular rate and rhythm with S1, S2 present without murmurs, rubs, clicks, or gallops. There is no JVD or peripheral edema. Radial and pedal pulses are palpable. Pulmonary: Symmetrical chest expansion without use of accessory muscles. Clear to auscultation bilaterally without rhonchi, wheezes, or rales. No digital clubbing or cyanosis. Abdomen: Obese. Bowel sounds in all quadrants. Soft, nontender to palpation. Musculoskeletal: Left shoulder with decreased range of motion. Left knee with clean, dry, intact dressing in place; Cryo unit in place. Sensation intact distally. The patient is able to move distal digits in the bilateral upper and lower extremities. Neuro: The patient is awake. She is alert and oriented x3. Cranial nerves II through XII are grossly intact. ASSESSMENT AND PLAN: Ms. Gallo is a 63-year-old female with past medical history of hypertension, hyperlipidemia, obstructive sleep apnea, who presented to [facility] today for an elective left total knee arthroplasty. She will be admitted inpatient for: 1. Left total knee arthroplasty. Management per Dr. Silverman and ortho team. Activity per Ortho. PT has been ordered. Heparin subcu for DVT prophylaxis. 2. Diabetes mellitus. Metformin has been placed on hold. The patient will be started on lispro sliding scale with fingersticks a.c. and h.s. 3. Hypertension. Lisinopril has been placed on hold. The patient will continue amlodipine and HCTZ. 4. Hyperlipidemia. Continue atorvastatin. 5. Hypothyroidism. Continue levothyroxine. 6. Gout. Continue allopurinol. We will hold Total Cleanse home medication for the time being. 7. Obstructive sleep apnea. The patient has her own CPAP, which she will use while she is in the hospital. 8. Depression. Continue duloxetine. 9. Gastroesophageal reflux disease. Continue omeprazole. 10. Insomnia. Continue melatonin daily, zolpidem p.r.n. 11. DVT prophylaxis: Per Ortho, heparin subcu t.i.d. 12. Code status: Full code. TIME SPENT: Approximately 40 minutes was spent on this consultation, greater than half that time was spent [id number] with the patient obtaining history, performing physical, and reviewing the plan of care. The case has been reviewed with my attending Dr. López, who is in agreement with the plan of care. CARRI HORNER [id number]/[facility] #: [id number] E.J. NOBLE HOSPITALMarielle
[2019-05-04] MEDS: Insulin LISPRO* 1 UNITS UNIT SUBCUT SCH ×2 (18:10→21:32)
[2019-05-04] MEDS: Fluticasone NASAL SPRAY 50MCG* 16 gm SPRAY BTL BOTH NARES SCH (18:12)
[2019-05-04] MEDS: HYDROcodone/ACETAMIN 5-325 MG* 1 TAB PO PRN ×2 (19:09→23:11)
[2019-05-04] MEDS: ceFAZolin 1 GM ADVAN(*) 1 GM in NS 0.9% 50 ML* 50 ML IVPB SCH (20:06)
--- NOTE | 2019-05-04 20:31 | OP ---
DATE OF OPERATION: 05/04/19 - ROOM #347 DATE OF : 57 SURGEON: Gabe Silverman MD LUMPIA WRAPPER MAKER: Nory Glover RPA ANESTHESIA: Regional/spinal/sedation. PRE-OP DIAGNOSIS: Traumatic arthrosis, left knee. POST-OP DIAGNOSIS: Traumatic arthrosis, left knee. OPERATIVE PROCEDURE: Left total knee arthroplasty with Navio guidance. ESTIMATED BLOOD LOSS: 50 cc. COMPLICATIONS: None. HARDWARE: [employer]man [employer] Nephew 6 narrow Oxinium Legion femur, #4 Manda II tibia, 9 mm High-Flex polyethylene spacer, 35 mm all polyethylene patellar button. INDICATIONS: Mrs. Gallo is a 63-year-old female who in the mid had sustained a mildly displaced tibial plateau fracture. She was treated nonoperatively and had done well where the knee had felt good and she was able to do activities. For the past several years, the knee has been giving her more troubles and she is having more and more pain and limitations because of the knee. Considering that she did have a small stepoff and that there was very specific cartilage wear within the knee, I discussed with her that a total knee arthroplasty should work well to decrease her pain and improve her function. Risks of surgery such as infection, scar formation, stiffness, DVT, pulmonary embolism, hardware failure, and continued pain were some of the risks discussed. She had been declared medically optimized and wished to proceed. DESCRIPTION OF PROCEDURE: The patient had an adductor canal block placed in the holding area and was brought back to the OR. Spinal anesthesia was introduced. Miller catheter was placed as was a tourniquet over the proximal left thigh. Tourniquet was used during the case and total tourniquet time would be 90 minutes. Left knee was prepped and then draped. Esmarch was used to exsanguinate the leg and the tourniquet was raised. Midline incision was made beginning just medial to the tibial tubercle and carried approximately 4 fingerbreadths above the superior pole of patella. Incision was carried down through the skin and subcutaneous fat. Small bleeders encountered were ligated using electro-cautery. Extensor mechanism was exposed and a sharp parapatellar arthrotomy was made. Gush of clear yellowish joint fluid was encountered. Soft tissues were sharply elevated from the medial side of the tibia and the fat pad was sharpy excised. Patella measured approximately 22 mm in thickness and a nice 10 mm cut was taken. Patella was then easily subluxated laterally and the knee was flexed up. Nice exposure of the femur was obtained. Pins for the femur and tibia were placed so that the arrays could be assembled and similarly the push pins were placed into the tibia and femur as well. The knee was taken through a range of motion, so that the Navio could scan the knee in and the different reference points were all scanned into the Navio as well. Once all the reference points have been scanned, distal femur and proximal tibia were scanned into the Navio. Navio selected a 6 and a 5, which corresponded well to preoperative templating. Parts were adjusted until I liked her flexion and extension gaps and her alignment appeared quite good. Distal femur was then burred and peg holes were also burred. Distal femoral cutting guide was then impacted into place and using the tasia wing, I could see that she would not notch. Anterior and posterior femoral cuts followed by the chamfer cuts were taken. Luis holes were made for the tibial component and the tibial cut was also taken with a 9 mm spacer block. She sat nicely in full extension and flexed nicely and was nice and stable with excellent gaps on both sides. Femur was then finished using the reamer and the punch and similarly on the tibia and coming back to the tibia, I initially placed the 5, but to get the 5 to fit so that there was no posterior overhang, I needed to externally rotate fairly significantly. 4 was therefore selected so that I had a much more anatomic alignment and the drop guille came down right along the anterior spine of the tibia and pointed to the second metatarsal base. Tibia was pinned into place and tibia was drilled in and punched. Trial instrumentation was placed and she came out nicely into full extension, flexed easily and a good stability throughout. Stress views were taken and saved and the arrays were taken down and pins were removed. This allowed for evaluation of patellar tracking. Patellar tracking was good. She sized nicely for a 35 and holes were drilled and trial was snapped into place. Patellar tracking was very good. Trial instrumentation was removed. The knee was copiously pulse lavaged. Cement was being prepared. Tibia, followed by femur and patella were all cemented into place. Excess cement was removed and the cement was allowed to harden. Once the cement had hardened, she was searched for a cement and a few small pieces were found. She was trialed again with a 9 and I like the motion and stability , but because we had a 6 and a 4, I needed to use the High-Flex tibia and this was brought on to the field. I had difficulty with seating the 4 High-Flex, but eventually it was seated. The knee was again copiously pulse lavaged and parapatellar arthrotomy was repaired using interrupted #1 Vicryl sutures. Tourniquet was let down during the repair and no significant bleeding was encountered. The knee was again copiously pulse lavaged and subcutaneous tissues were reapproximated using 2-0 Vicryl and skin was closed using get. Sterile dressing and Cryo/Cuff were applied in the OR. The patient was then stable on transfer to the recovery room. [id number]/[facility] #: [id number] MELANIE
[2019-05-04] MEDS ORDERED: Gabapentin CAP(*) 300 MG PO SCH (21:00)
[2019-05-04] MEDS: Docusate CAP* 100 MG PO SCH (21:24)
[2019-05-04] MEDS: Magnesium Hydroxide LIQ* 30 ML UDC PO SCH (21:28)
[2019-05-04] MEDS: Melatonin 3 MG TAB PO SCH (23:11)
[2019-05-04] MEDS: Acetaminophen TAB* 325 MG PO SCH (23:12)
[2019-05-05] MEDS: traMADol TAB* 50 MG PO SCH ×3 (00:03→11:49)
[2019-05-05] MEDS: Lactated Ringers 1000 ML Bag* 1,000 ML IV SCH ×2 (00:37→12:46)
[2019-05-05] MEDS: Zolpidem TAB* 10 MG PO PRN ×2 (00:37→21:47)
[2019-05-05] MEDS: HYDROcodone/ACETAMIN 5-325 MG* 1 TAB PO PRN ×2 (03:47→08:06)
[2019-05-05] MEDS: ceFAZolin 1 GM ADVAN(*) 1 GM in NS 0.9% 50 ML* 50 ML IVPB SCH ×2 (03:48→12:46)
[2019-05-05] MEDS: Morphine INJ* 2 MG/ML 1 ML SYRINGE (TWO MG - NEW SYRINGE VERSION) IV PRN (03:51)
[2019-05-05 05:34] LABS: Hematocrit 32 % (35-47); Hemoglobin 10.3 g/dL (12.0-16.0); Mean Platelet Volume 7.6 fL (7.4-10.4); Platelet Count 179 10^3/uL (150-450)
[2019-05-05 05:40] LABS: INR 1.23 (0.82-1.09)
[2019-05-05 05:52] LABS: BUN/Creatinine Ratio 19.7 (8-20); Calcium 8.6 mg/dL (8.6-10.3); EGFR African American 109.8 (>60); EGFR Non-African American 90.7 (>60); Potassium 3.2 mmol/L (3.5-5.0)
[2019-05-05] MEDS: Acetaminophen TAB* 325 MG PO SCH ×3 (06:07→21:48)
[2019-05-05] MEDS: Levothyroxine TAB* 137 MCG TAB PO SCH (06:18)
[2019-05-05] MEDS: Insulin LISPRO* 1 UNITS UNIT SUBCUT SCH ×4 (07:01→21:17)
[2019-05-05] MEDS: Aspirin EC TAB* 81 MG TAB.EC PO SCH (08:04)
[2019-05-05] MEDS: DULoxetine DR CAP* 30 MG CAP.DR PO SCH (08:04)
[2019-05-05] MEDS: amLODIPine TAB* 5 MG PO SCH (08:04)
[2019-05-05] MEDS: Docusate CAP* 100 MG PO SCH ×2 (08:04→21:14)
[2019-05-05] MEDS: Vitamin THERAPEUTIC TAB PO SCH (08:05)
[2019-05-05] MEDS: Atorvastatin* 10 MG TAB PO SCH (08:05)
[2019-05-05] MEDS: Allopurinol TAB* 300 MG PO SCH (08:05)
[2019-05-05] MEDS: Pantoprazole TAB * 40 MG TAB PO SCH (08:05)
[2019-05-05] MEDS: Heparin VIAL(*) 5000 UNITS/ML VIAL (FIVE THOUSAND) SUBCUT SCH ×3 (08:07→21:57)
[2019-05-05] MEDS: Magnesium Hydroxide LIQ* 30 ML UDC PO SCH ×2 (08:08→21:15)
[2019-05-05] MEDS ORDERED: Potassium Chlor TAB* 20 MEQ TAB.ER PO ONE (08:41)
[2019-05-05] MEDS ORDERED: Influenza VAC *QUAD* 2019-20* 0.5 ML SYRINGE IM ONE (09:00)
[2019-05-05] MEDS: [UNRECOGNIZED DRUG - OTHER] PO SCH (11:49)
[2019-05-05] MEDS: Psyllium PAK PO SCH (11:56)
--- NOTE | 2019-05-05 13:14 | PN ---
Progress Note - Progress Note Date of Service: 05/05/19 SOAP: Subjective: []Pt seen and examined at bedside. She denies CP, SOB, dizziness, nausea. Knee pain tolerable. Desires to stay until tomorrow then DC home Objective: []Gen: Appears well, NAD LLE: Left knee dressing CDI, thigh soft, DF/PF intact, DP2+, sensation intact to light touch distally Calves supple and nontender without erythema, edema or palpable cords Assessment: []POD 1 sp LTK Plan: []WBAT PT/OT heparin bridge to coumadin. coumadin 6 mg Plan DC home tomorrow Vital Signs Temp 98.2 F 05/05/19 11:22 Pulse 78 05/05/19 11:22 Resp 16 05/05/19 11:49 BP 136/69 05/05/19 11:22 Pulse Ox 94 05/05/19 11:22 Intake & Output 05/04/19 05/05/19 05/05/19 18:59 06:59 18:59 Intake Total 1999 2636 210 Output Total 500 750 Balance 1500 1886 210 Weight 247 lb 6.4 oz Intake: IV Fluids 1999 1036 LR 1999 976 cefazolin 60 Oral 1600 210 Output: Miller 500 750 Laboratory Last Values Hgb 10.3 g/dL (12.0-16.0) L 05/05/19 05:23 Hct 32 % (35-47) L 05/05/19 05:23 Plt Count 179 10^3/uL (150-450) 05/05/19 05:23 MPV 7.6 fL (7.4-10.4) 05/05/19 05:23 INR (Anticoag Therapy) 1.23 (0.82-1.09) H 05/05/19 05:23 Sodium 137 mmol/L (135-145) 05/05/19 05:23 Potassium 3.2 mmol/L (3.5-5.0) L 05/05/19 05:23 Chloride 100 mmol/L (101-111) L 05/05/19 05:23 Carbon Dioxide 30 mmol/L (22-32) 05/05/19 05:23 Anion Gap 7 mmol/L (2-11) 05/05/19 05:23 BUN 13 mg/dL (6-24) 05/05/19 05:23 Creatinine 0.66 mg/dL (0.51-0.95) 05/05/19 05:23 Est GFR ( Amer) 109.8 (>60) 05/05/19 05:23 Est GFR (Non-Af Amer) 90.7 (>60) 05/05/19 05:23 BUN/Creatinine Ratio 19.7 (8-20) 05/05/19 05:23 Glucose 143 mg/dL (70-100) H 05/05/19 05:23 POC Glucose (mg/dL) 184 mg/dL (70-100) H 05/05/19 11:48 Calcium 8.6 mg/dL (8.6-10.3) 05/05/19 05:23
[2019-05-05] MEDS ORDERED: HYDROcodone/ACETAMIN 5-325 MG* 1 TAB PO PRN (15:35)
[2019-05-05] MEDS ORDERED: traMADol TAB* 50 MG PO PRN (15:35)
[2019-05-05] MEDS ORDERED: Warfarin TAB(*) 6 MG PO ONE (17:00)
--- NOTE | 2019-05-05 17:18 | PN ---
Subjective Date of Service: 05/05/19 Interval History: Patient seen and examined, per RN, patient was very sleepy all day and RN and ortho were concerned about overmedication/narcotics. Patient does appear very sleepy but answers questions appropriately. Denies pain, denies SOB, no fevers or chills. at bedside. Objective Active Medications: Acetaminophen (Tylenol Tab*) 975 mg PO Q8HR [facility] Last Admin: 05/05/19 14:46 Dose: 975 mg Hydrocodone Bitart/Acetaminophen ([place] 5-325 Tab*) 2 tab PO Q4H PRN PRN Reason: PAIN - SEVERE Last Admin: 05/05/19 08:06 Dose: 1 tab Hydrocodone Bitart/Acetaminophen ([place] 5-325 Tab*) 1 tab PO Q4H PRN PRN Reason: PAIN - SEVERE Allopurinol (Zyloprim Tab*) 300 mg PO [facility] Last Admin: 05/05/19 08:05 Dose: 300 mg Amlodipine Besylate (Norvasc Tab*) 5 mg PO [facility] Last Admin: 05/05/19 08:04 Dose: 5 mg Aspirin (Aspirin Ec Tab*) 81 mg PO [facility] Last Admin: 05/05/19 08:04 Dose: 81 mg Atorvastatin Calcium (Lipitor*) 10 mg PO [facility] Last Admin: 05/05/19 08:05 Dose: 10 mg Bisacodyl (Dulcolax Supp*) 10 mg OH DAILY PRN PRN Reason: CONSTIPATION Cyclobenzaprine HCl (Flexeril Tab*) 10 mg PO Q6H PRN PRN Reason: SPASMS Dextrose (Dextrose 50% Vial 50 Ml*) 25 ml IV PUSH .FOR FS < 60 - SS PRN PRN Reason: FS < 60 Diphenhydramine HCl (Benadryl Iv*) 25 mg IV Q6H PRN PRN Reason: PRURITIS Diphenhydramine HCl (Benadryl Po*) 25 mg PO Q6H PRN PRN Reason: PRURITIS Docusate Sodium (Colace Cap*) 100 mg PO BID [facility] Last Admin: 05/05/19 08:04 Dose: 100 mg Duloxetine HCl (Cymbalta Cap*) 60 mg PO [facility] Last Admin: 05/05/19 08:04 Dose: 60 mg Fluticasone Propionate (Flonase Nasal [place] 50mcg*) 2 spray BOTH NARES QPM [facility] Last Admin: 05/04/19 18:12 Dose: Not Given Gabapentin (Neurontin Cap(*)) 300 mg PO BEDTIME [facility] Heparin Sodium (Porcine) (Heparin Vial(*)) 5,000 units SUBCUT Q8HR [facility] Last Admin: 05/05/19 14:47 Dose: 5,000 units Lactated Ringer's (Lactated Ringers 1000 Ml Bag*) 1,000 mls @ 100 mls/hr IV PER RATE [facility] Last Admin: 05/05/19 12:46 Dose: 100 mls/hr Insulin Human Lispro (Humalog*) 0 units SUBCUT ACHS [facility]; Protocol Last Admin: 05/05/19 12:46 Dose: 1 units Ketorolac Tromethamine (Toradol Inj*) 30 mg IV PUSH Q6H PRN PRN Reason: breakthrough pain Stop: 05/09/19 16:37 Last Admin: 05/04/19 19:25 Dose: 30 mg Lactobacillus Rhamnosus (Lactobacillus Acidophilus*) 1 tab PO QPM [facility] Last Admin: 05/04/19 17:31 Dose: 1 tab Lactulose (Lactulose*) 30 ml PO BID PRN PRN Reason: CONSTIPATION Levothyroxine Sodium (Synthroid Tab*) 137 mcg PO QAM@0600 [facility] Last Admin: 05/05/19 06:18 Dose: 137 mcg Magnesium Hydroxide (Milk Of Magnesia Liq*) 30 ml PO BID [facility] Last Admin: 05/05/19 08:08 Dose: 30 ml Magnesium Hydroxide (Milk Of Magnesia Liq*) 30 ml PO Q6H PRN PRN Reason: CONSTIPATION Melatonin (Melatonin) 3 mg PO BEDTIME [facility] Last Admin: 05/04/19 23:11 Dose: 3 mg Morphine Sulfate (Morphine Inj (Syringe))*) 2 mg IV Q4H PRN PRN Reason: Pain - Unrelieved Last Admin: 05/05/19 03:51 Dose: 2 mg Multivitamins (Theragran Tab*) 1 tab PO DAILY [facility] Last Admin: 05/05/19 08:05 Dose: 1 tab Pto:Non Formulary Med* (Total Cleanse Capsule 1 Cap) 1 cap PO QAM [facility] Last Admin: 05/05/19 11:49 Dose: 1 cap Ondansetron HCl (Zofran Inj*) 4 mg IV Q6H PRN PRN Reason: NAUSEA Last Admin: 05/05/19 02:22 Dose: 4 mg Ondansetron HCl (Zofran Odt Tab*) 4 mg PO Q6H PRN PRN Reason: NAUSEA Pantoprazole Sodium (Protonix Tab*) 40 mg PO DAILY [facility] Last Admin: 05/05/19 08:05 Dose: 40 mg Pharmacy Profile Note (Coumadin Daily Reminder*) 1 note FOLLOW UP 1700 ELIJ[address] Potassium Chloride (Klor Con Er Tab*) 20 meq PO QPM [facility] Last Admin: 05/04/19 17:33 Dose: 20 meq Psyllium Hydrophilic Mucilloid (Metamucil Mike*) 1 pkt PO QAM [facility] Last Admin: 05/05/19 11:56 Dose: Not Given Tramadol HCl (Ultram*) 50 mg PO Q6HR PRN PRN Reason: PAIN - MODERATE Zolpidem Tartrate (Ambien Tab*) 10 mg PO BEDTIME PRN; Protocol PRN Reason: sleep aid Last Admin: 05/05/19 00:37 Dose: 10 mg Vital Signs - 8 hr 05/05/19 05/05/19 05/05/19 11:22 11:49 15:04 Temperature 98.2 F 97.8 F Pulse Rate 78 80 Respiratory 17 16 16 Rate Blood Pressure 136/69 134/61 (mmHg) O2 Sat by Pulse 94 97 Oximetry Oxygen Devices in Use Now: Nasal Cannula, CPAP Appearance: drowsy, arousable, NAD Eyes: PERRLA Ears/Nose/Mouth/Throat: Mucous Membranes Moist Neck: NL Appearance and Movements; NL JVP Respiratory: Symmetrical Chest Expansion and Respiratory Effort, Clear to Auscultation Cardiovascular: NL Sounds; No Murmurs; No JVD, RRR, No Edema Abdominal: NL Sounds; No Tenderness; No Distention Extremities: No Clubbing, Cyanosis Neurological: Alert and Oriented x 3 Nutrition: Taking PO's Result Diagrams: 05/05/19 05:23 05/05/19 05:23 Assess/Plan/Problems-Billing Assessment: This is a 63 year old female with hx of DM, HTN, GERD, HLP, OA, JOEL, depression and insomnia that presented to [facility] [place] for elective left total knee arthroplasty. - Patient Problems (1) Status post left knee replacement Code(s): Z96.652 - PRESENCE OF LEFT ARTIFICIAL KNEE JOINT SNOMED Code(s): 8347766129445 Comment: - POC as per ortho - Minimize or DC narcotics, place on standing tylenol - PT/OT - Bowel regimen (2) JOEL (obstructive sleep apnea) Code(s): G47.33 - OBSTRUCTIVE SLEEP APNEA (ADULT) (PEDIATRIC) SNOMED Code(s): 14440075 Comment: - Patient very drowsy today, questionable if she used her CPAP last night (not in notes) - Recommend using CPAP during the day, as patient is drowsy/napping on and off and likely requires additional support, probably a component of OHS as well - Minimize or no narcotics - May need to check ABG if no improvement (3) HTN (hypertension) Code(s): I10 - ESSENTIAL (PRIMARY) HYPERTENSION SNOMED Code(s): 61453459 Comment: - Stable on amlodipine (4) GERD (gastroesophageal reflux disease) Code(s): K21.9 - GASTRO-ESOPHAGEAL REFLUX DISEASE WITHOUT ESOPHAGITIS SNOMED Code(s): 314961117 Comment: - Stable on PPI (5) DMII (diabetes mellitus, type 2) Comment: - Lispro SS with accuchecks ACHS - Restart PO meds at discharge (6) Gout Code(s): M10.9 - GOUT, UNSPECIFIED SNOMED Code(s): 37200309 Comment: - Continue allopurinol (7) Depression Code(s): F32.9 - MAJOR DEPRESSIVE DISORDER, SINGLE EPISODE, UNSPECIFIED SNOMED Code(s): 11350291 Comment: - Continue duloxetine (8) DVT prophylaxis Code(s): Z29.9 - ENCOUNTER FOR PROPHYLACTIC MEASURES, UNSPECIFIED SNOMED Code( s): 676948345 Comment: - Coumadin per ortho
[2019-05-05] MEDS: Lactobacillus Acidophilus* 1 TAB PO SCH (17:58)
[2019-05-05] MEDS: Potassium Chlor TAB* 20 MEQ TAB.ER PO SCH (17:59)
[2019-05-05] MEDS ORDERED: Gabapentin CAP(*) 300 MG PO SCH (21:00)
[2019-05-05] MEDS: Melatonin 3 MG TAB PO SCH (21:14)
[2019-05-05] MEDS: Fluticasone NASAL SPRAY 50MCG* 16 gm SPRAY BTL BOTH NARES SCH (21:48)
[2019-05-06] MEDS: Levothyroxine TAB* 137 MCG TAB PO SCH (05:42)
[2019-05-06] MEDS: Heparin VIAL(*) 5000 UNITS/ML VIAL (FIVE THOUSAND) SUBCUT SCH (05:42)
[2019-05-06] MEDS: Acetaminophen TAB* 325 MG PO SCH ×2 (05:42→13:07)
[2019-05-06 05:46] LABS: Hematocrit 31 % (35-47); Hemoglobin 10.2 g/dL (12.0-16.0); Mean Platelet Volume 8.1 fL (7.4-10.4); Platelet Count 170 10^3/uL (150-450)
[2019-05-06 05:50] LABS: INR 2.72 (0.82-1.09)
[2019-05-06] MEDS: Insulin LISPRO* 1 UNITS UNIT SUBCUT SCH ×2 (08:37→11:52)
[2019-05-06] MEDS: Aspirin EC TAB* 81 MG TAB.EC PO SCH (08:38)
[2019-05-06] MEDS: amLODIPine TAB* 5 MG PO SCH (08:38)
[2019-05-06] MEDS: Atorvastatin* 10 MG TAB PO SCH (08:38)
[2019-05-06] MEDS: Docusate CAP* 100 MG PO SCH (08:38)
[2019-05-06] MEDS: Allopurinol TAB* 300 MG PO SCH (08:38)
[2019-05-06] MEDS: DULoxetine DR CAP* 30 MG CAP.DR PO SCH (08:38)
[2019-05-06] MEDS: Magnesium Hydroxide LIQ* 30 ML UDC PO SCH (08:38)
[2019-05-06] MEDS: Pantoprazole TAB * 40 MG TAB PO SCH (08:38)
[2019-05-06] MEDS: Psyllium PAK PO SCH (08:39)
[2019-05-06] MEDS: Vitamin THERAPEUTIC TAB PO SCH (08:39)
--- NOTE | 2019-05-06 09:28 | DS ---
Orthopedic Discharge Summary - Discharge Summary Date of Admission:05/04/19 Date of Discharge: 05/06/19 Date of Surgery: 05/04/19 Attending Orthopedic Provider: Dr Silverman Pre-operative Diagnosis: Left knee osteoarthritis Operative Procedure: left total knee replacement Disposition of Patient: home with vns. will have labs drawn this saturday due to holiday then resume saturday and draws Condition of Patient: stable History: ABNER DICKERSON is a 63 year old F with years of increasingly severe left knee pain. Patient has failed conservative management and has elected to undergo a left total knee replacement Hospital Course: ABNER was admitted to [facility] on 05/04/19. Patient underwent a left total knee replacement without complication followed by a brief recovery in PACU and transfer to the Short Stay Surgical Unit in stable condition. Our hospitalist service, physical therapy and occupational therapy also participated in this patients care. Post-op day 1: patient was alert and in no acute distress. Dressing was clean, dry and intact. Operative extremity dorsiflexion and plantarflexion intact, sensation intact to light touch distally, DP2+. Post-op day two: dressing was changed, incision was clean , dry and intact. Patient was deemed to be medically and orthopedically stable for discharge. Physical therapy goals were met. Home Medications Medication Instructions Recorded Confirmed Type Allopurinol TAB* [Zyloprim 300 MG 300 mg PO QAM 12/30/18 05/04/19 History TAB*] Amlodipine Besylate [Norvasc] 5 mg PO QAM 12/30/18 05/04/19 History Aspirin [Aspir-Low] 81 mg PO QAM 12/30/18 04/24/19 History Atorvastatin* [Lipitor 10 MG*] 10 mg PO QAM 12/30/18 05/04/[address] MATSON* [Cymbalta CAP*] 60 mg PO QAM 12/30/18 04/24/19 History Diclofenac 1% GEL (NF) [Voltaren 1 applic TOPICAL ONCE 12/30/18 04/24/19 History 1% GEL (NF)] Hydrochlorothiazide TAB* 50 mg PO QAM 12/30/18 05/04/19 History [Hydrodiuril TAB*] Levothyroxine TAB* [Synthroid 137 137 mcg PO QAM 12/30/18 05/04/19 History MCG TAB*] Lisinopril 40 mg PO QAM 12/30/18 05/04/19 History Omeprazole (Nf) [Prilosec (NF)] 40 mg PO BEDTIME 12/30/18 05/04/19 History Psyllium Husk (with Sugar) 1 waf PO QAM 12/30/18 05/04/19 History [Metamucil Fiber Thin] Total Cleanse Capsule 1 cap PO QAM 12/30/18 05/04/19 History metFORMIN* [Glucophage 500 MG TAB 500 mg PO BID 12/30/18 05/04/19 History *] Cyclobenzaprine TAB* 10 mg PO QAM 04/24/19 05/04/19 History Gabapentin CAP(*) 300 mg PO BEDTIME 04/24/19 05/04/19 History Potassium Chlor TAB* 20 meq PO QPM 04/24/19 05/04/19 History Fluticasone NASAL SPRAY 50MCG* 2 spray BOTH NARES QPM 05/01/19 05/04/19 History [Flonase NASAL SPRAY 50MCG*] Melatonin [Vitajoy] 2.5 mg PO QPM 05/01/19 05/04/19 History Saccharomyces Boulardii [Probiotic] 250 mg PO QPM 05/01/19 05/04/19 History Zolpidem Tartrate [Zolpidem 12.5 mg PO QPM PRN 05/01/19 05/04/19 History Tartrate ER] Acetaminophen TAB* [Tylenol TAB*] 975 mg PO Q8HR tab 05/05/19 Rx Docusate CAP* [Colace Cap*] 100 mg PO BID PRN #90 cap 05/05/19 Rx HYDROcodone/ACETAMIN 5-325 MG* 1 tab PO Q4H PRN tab MDD 10 05/05/19 Rx [[place] 5-325 TAB*] HYDROcodone/ACETAMIN 5-325 MG* 2 tab PO Q4H PRN #70 tab MDD 10 05/05/19 Rx [[place] 5-325 TAB*] Warfarin TAB(*) [Coumadin TAB(*)] 2 mg PO DAILY #90 tab 05/05/19 Rx Discharge Instructions following Orthopedic Surgery: Activity: * Weight Bearing as tolerated * Continue physical therapy and occupational therapy exercises as shown * Home PT Wound care: * OK to shower on post-op day 3, no bathing, swimming, or submerging wound. * Use gentle soap, pat dry. Cover with gauze, MASSIMO wrap or tape. * Visiting home nurse to do wound checks. Remove sutures/get in two weeks Call Orthopedic office for: * Increased drainage * Redness * Increased pain * Fever Go to ER with shortness of breath or chest pain. Diet: * Regular diet * Increase fluids and fiber to prevent constipation. * Continue to use stool softeners, call office if no bowel motion within 48 hours. Medications See Home Medication List in your packet for medications that you should take after discharge. DVT Prophylaxis: Coumadin Dosing: * Please note that you have been given 2 mg tablets. * Visiting home nurse to draw blood work for INR on Saturday and . * You will be provided with dose instructions on Mondays and . * If you do not receive dosing instruction on dosing, please call our office right away. Please lindsay dosing instructions on your calendar as they are provided to you. * Dosin mg daily on 05/06 and 05/07. On 05/07 you will have a repeat INR blood draw for further dosing instructions. Thereafter you will resume saturday and blood draws. If due to the holiday you do not have dosing instructions please take 2 mg on 05/06 and 05/07 and on 05/08, 05/09 and 05/10 please take 4 mg daily - this is only if you do not receive dosing base on your saturday labs. Call orthopedic office if you do not receive dosing instructions. Pain Control: [place] 5/325 mg 1 tab for moderate pain and 2 tabs for severe pain by mouth every 4 hours as needed for pain. Maximum of 10 tabs per day. Limit use as much as possible. Hold for sedation and wean off as soon as pain allows Please note that norco contains Tylenol (acetaminophen). Maximum daily dose of Tylenol is 4000 mg from all sources. Antibiotics are required prior to any dental work. FOLLOW UP: Follow up with [Herrera] in 4 weeks, call for appointment Please call our office with any questions or concerns ([phone]) [facility]
[2019-05-06] MEDS: [UNRECOGNIZED DRUG - OTHER] PO SCH (10:09)
[2019-05-06 11:39] VITALS: BP 150/75
[2019-05-06] MEDS ORDERED: Bisacodyl SUPP* 10 MG SUPP PR PRN (14:18)
== END 2019-05-06 14:00 | disposition home health service (06) | DRG 302 ==
LOC: AA 08:24 → SSU 14:18
PROVIDERS: ADMIT Orthopaedic Surgery; ATTEND Orthopaedic Surgery
PROC: 8E0YXBZ Computer Assisted Procedure of Lower Extremity (ICD-10-PCS; 2019-05-04)
PROC: 0SRD069 Replacement of Left Knee Joint with Oxidized Zirconium on Polyethylene Synthetic Substitute, Cemented, Open Approach (ICD-10-PCS; principal; 2019-05-04 10:30)
DX: M17.32 Unilateral post-traumatic osteoarthritis, left knee (principal); Z68.41 Body mass index [BMI] 40.0-44.9, adult; I10 Essential (primary) hypertension; E03.9 Hypothyroidism, unspecified; F32.9 Major depressive disorder, single episode, unspecified; K21.9 Gastro-esophageal reflux disease without esophagitis; L68.0 Hirsutism; L82.1 Other seborrheic keratosis; M06.9 Rheumatoid arthritis, unspecified; E78.5 Hyperlipidemia, unspecified; G47.33 Obstructive sleep apnea (adult) (pediatric); E11.9 Type 2 diabetes mellitus without complications; E66.9 Obesity, unspecified; G47.00 Insomnia, unspecified; X58.XXXS Exposure to other specified factors, sequela; Z79.82 Long term (current) use of aspirin; Z88.8 Allergy status to other drugs, medicaments and biological substances; Z88.2 Allergy status to sulfonamides; Z88.6 Allergy status to analgesic agent; Z79.899 Other long term (current) drug therapy; Z79.890 Hormone replacement therapy; Z79.84 Long term (current) use of oral hypoglycemic drugs; Z79.51 Long term (current) use of inhaled steroids; T14.90XS Injury, unspecified, sequela; Z23 Encounter for immunization
CPT/HCPCS: 36415; 80048; 84132; 85014; 85018; 85049; 85610; 88305; 88311; 90686; A9270-GY; C1776; J0690; J1644; J1885; J2250; J2270; J2405; J2704; J2795; J3010